=== PATIENT | female | born 1955 | race Caucasian/White ===

== ENCOUNTER 2018-02-06 04:16 | Inpatient (IN) ==
[2018-02-06] MEDS ORDERED: Sod Chloride 0.9% Inj 1,000 ML IV.SIG ONE (04:28)
[2018-02-06] MEDS ORDERED: Haloperidol Inj 5 MG/ML Ampul IV.PUSH ONE (04:36)
[2018-02-06] MEDS ORDERED: Sod Chloride 0.9% Inj 1,000 ML IV.SIG SCH (04:45)
[2018-02-06 04:47] LABS: Baso # (Auto) 0.1 th/mm3 (0.0-0.2); Baso % (Auto) 0.8 % (0.0-2.0); Eos # (Auto) 0.1 th/mm3 (0.0-0.4); Eos % (Auto) 0.3 % (0.0-4.0); Hematocrit 39.3 % (35.0-46.0); Hemoglobin 13.1 gm/dL (11.6-15.3); Lymph # (Auto) 2.3 th/mm3 (1.0-4.8); Lymph % (Auto) 13.3 % (9.0-44.0); Mean Corpuscular HGB Conc 33.2 % (32.0-36.0); Mean Corpuscular Hemoglobin 28.1 pg (27.0-34.0); Mean Corpuscular Volume 84.8 fL (80.0-100.0); Mean Platelet Volume 8.1 fL (7.0-11.0); Mono # (Auto) 0.9 th/mm3 (0.0-0.9); Mono % (Auto) 5.1 % (0.0-8.0); Neut # (Auto) 13.7 th/mm3 (1.8-7.7); Neut % (Auto) 80.5 % (16.0-70.0); Platelet Count 398 th/mm3 (150-450); Red Blood Count 4.64 mil/mm3 (4.00-5.30); Red Cell Distribution Width 12.5 % (11.6-17.2); White Blood Count 17.1 th/mm3 (4.0-11.0)
--- NOTE | 2018-02-06 04:54 | XR ---
EXAM DATE: 02/06/2018 4:50 AM EDT AGE/SEX: 62 years / Female INDICATIONS: Chest pain. CLINICAL DATA: This is the patient's initial encounter. Patient reports that signs and symptoms have been present for 1 day and indicates a pain score of 5/10. MEDICAL/SURGICAL HISTORY: None. None. COMPARISON: No prior exams available for comparison. FINDINGS: A single AP view of the chest demonstrates the lungs to be symmetrically aerated without evidence of mass, infiltrate or effusion. The cardiomediastinal contours are unremarkable. Osseous structures a re intact. CONCLUSION: No evidence of acute cardiopulmonary disease. Electronically signed by: Mark Lipscomb MD 02/06/2018 4:52 AM EDT
[2018-02-06 04:55] LABS: Chloride 105 meq/L (98-107); Potassium 3.7 meq/L (3.5-5.1); Sodium 139 meq/L (136-145)
[2018-02-06 04:58] LABS: Calcium 9.2 mg/dL (8.5-10.1)
[2018-02-06 04:59] LABS: Albumin 3.8 g/dL (3.4-5.0); Anion Gap 10 meq/L (5-15); Blood Urea Nitrogen 14 mg/dL (7-18); Glucose,Random 226 mg/dL (74-106); Lipase 212 U/L (73-393)
[2018-02-06 05:01] LABS: Activated Partial Thrombo Time 23.3 sec (24.3-30.1)
[2018-02-06 05:02] LABS: Alanine Aminotransferase 18 U/L (10-53); Aspartate Aminotransferase 22 U/L (15-37); Glomerular Filtration Rate 61 mL/min (>89)
[2018-02-06 05:03] LABS: Total Protein 7.4 g/dL (6.4-8.2)
[2018-02-06 05:05] LABS: Alkaline Phosphatase 99 U/L (45-117)
--- NOTE | 2018-02-06 05:17 | ED ---
HPI General Chief complaint: GI Bleed Stated complaint: N/V/D Time Seen by Provider: 02/06/18 04:28 Source: patient Mode of arrival: EMS Limitations: other (Physical distress) History of Present Illness HPI Narrative: 62-year-old woman brought in by EMS with numerous complaints. Chiefly nausea, vomiting, bloody diarrhea, left-sided abdominal pain and chest pain the left side. All of these complaints started sometime around midnight. They have been continuous since their onset. They are very severe and causing her great distress. She cannot count the number time she has vomited. There is no blood in the vomitus but rather food material. Her diarrhea is mixed with blood. Her pain is constant and she is unable to describe it except as sharp. She cannot recall another episode of similar symptoms and denies ever being diagnosed with gastroparesis. She is a diabetic with known peripheral artery disease. History is limited by patient's severe physical distress. Related Data Home Medications Medication Instructions Recorded Confirmed aspirin 325 mg PO DAILY 02/06/18 02/06/18 atenolol 25 mg PO DAILY 02/06/18 02/06/18 clopidogrel [Plavix] 75 mg PO DAILY 02/06/18 02/06/18 insulin NPH and regular human 1 SUB-Q ACHS 02/06/18 lisinopril 20 mg PO DAILY 02/06/18 02/06/18 tramadol 50 mg PO Q6H 02/06/18 02/06/18 Allergies Allergy/AdvReac Type Severity Reaction Status Date / Time acetaminophen AdvReac Mild AVOIDS D/T Verified 02/06/18 04:25 FATTY LIVER PER PT Review of Systems ROS Unobtainable ROS Unobtainable: unobtainable due to mental condition (Very upset and anxious due to physical discomfort) [facility] Medical History Medical History Cellulitis (Acute) Complete amputation of right foot (Acute) Diabetes (Acute) Gangrene of right foot (Acute) Hyperlipidemia (Acute) Hypertension (Acute) Osteomyelitis (Acute) Peripheral arterial disease (Acute) Social History Social History Substance History: No History of Abuse Second Hand Smoke Exposure: No Smoking Status: Never smoker How Often Do You Have a Drink Containing Alcohol: Never Recent Travel in [facility] within the Last 8 Weeks: No Recent Out of Country Travel within the Last 8 Weeks: No Immunization History Tetanus Immunization: Unsure Hx Influenza Vaccine This Season: No Exam Narrative Exam Narrative: GENERAL: 62-year-old woman writhing on stretcher. No companions at bedside accompanying patient. SKIN: Focused skin assessment warm/dry. Flushed. HEAD: Atraumatic. Normocephalic. EYES: Pupils equal and round. No scleral icterus. No injection or drainage. ENT: No nasal bleeding or discharge. Mucous membranes pink and moist. NECK: Trachea midline. No JVD. CARDIOVASCULAR: Regular rate and rhythm. No murmur appreciated. RESPIRATORY: No accessory muscle use. Clear to auscultation. Breath sounds equal bilaterally. GASTROINTESTINAL: Abdomen soft, generalized mild tenderness that is worse in the left side, nondistended. MUSCULOSKELETAL: No obvious deformities. No clubbing. No cyanosis. No edema. Right below the knee ankle at the mid aguirre level. NEUROLOGICAL: Awake and alert. No obvious cranial nerve deficits. Motor grossly within normal limits. Normal speech. PSYCHIATRIC: Very anxious and hyperkinetic; cannot sit still and has difficulty following direction. Course Reevaluation(s) Reevaluation #1: Patient in CT scan area. Her symptoms are improved somewhat after being medicated. Time: 05:23 Reevaluation #2: Morphine ordered for patient's continued pain. Awaiting CTA results at this time. Time: 05:48 Consultations Consultation #1: Dr. Garcia will admit Time: 07:17 Initial Documented Vital Signs Temperature 98.2 F 02/06/18 04:26 Pulse Rate 85 02/06/18 04:26 Respiratory Rate 18 02/06/18 04:26 Blood Pressure 192/82 H 02/06/18 04:26 Pulse Oximetry 100 02/06/18 04:26 Last Documented Vital Signs Temperature 97.6 F 02/07/18 12:00 Pulse Rate 97 H 02/07/18 12:00 Respiratory Rate 20 02/07/18 12:00 Blood Pressure 90/53 L 02/07/18 13:43 Pulse Oximetry 98 02/07/18 12:00 Sign Out Sign Out Data: Patient Sign Out occurred on 02/06/18 at 06:59. Patient's care was discussed, and care was transferred from Regan Marquez MD to Sonja Christensen. Sign Out Comment: Pending CTA chest abdomen pelvis read. Last updated by Regan Marquez MD at 02/06/18 06:57 Post-Handoff Eval: CTA is back and shows colitis but no aneurysm. I have ordered Zosyn. The patient is being admitted. Medical Decision Making MDM Narrative Medical decision making narrative: 62-year-old woman with dramatic presentation of chest/abdominal pain, vomiting and bloody diarrhea. Given her history of vasculopathy and chest pain concerned for AAA rupture or dissection. Also consider mesenteric ischemia, so will add lactic acid. Consider gastric perforation or Boerhaave syndrome. CTA of the chest abdomen and pelvis should be helpful in differentiating these. ACS is a possibility especially in this patient with strong risk factors. However ECG does not appear consistent with STEMI. Consider variceal bleed in this patient with a history of fatty liver but her symptoms of pain are not fully consistent with this diagnosis. Will treat patient's distress with Haldol IV and Zofran IV in addition to IV fluid bolus. Medical Screen Exam Complete: Yes Emergency Medical Condition: Yes Differential Diagnosis Differential Diagnosis: AAA rupture, aortic dissection, mesenteric ischemia, perforated hollow viscus, Boerhaave syndrome, ACS, variceal bleed, upper GI bleed, lower GI bleed Medical Records Medical records reviewed: Yes I reviewed the patient's medical records. Lab Data Result diagrams: 02/07/18 10:00 02/06/18 04:40 Lab Results 02/06/18 02/06/18 02/06/18 Range/Units 04:40 04:40 04:40 CBC w Diff Auto diff final WBC 17.1 H (4.0-11.0) th/mm3 RBC 4.64 (4.00-5.30) mil/mm3 Hgb 13.1 (11.6-15.3) gm/dL Hct 39.3 (35.0-46.0) % MCV 84.8 (80.0-100.0) fL MCH 28.1 (27.0-34.0) pg MCHC 33.2 (32.0-36.0) % RDW 12.5 (11.6-17.2) % Plt Count 398 (150-450) th/mm3 MPV 8.1 (7.0-11.0) fL Neut % (Auto) 80.5 H (16.0-70.0) % Lymph % (Auto) 13.3 (9.0-44.0) % Blair % (Auto) 5.1 (0.0-8.0) % Eos % (Auto) 0.3 (0.0-4.0) % Baso % (Auto) 0.8 (0.0-2.0) % Neut # (Auto) 13.7 H (1.8-7.7) th/mm3 Lymph # (Auto) 2.3 (1.0-4.8) th/mm3 Blair # (Auto) 0.9 (0.0-0.9) th/mm3 Eos # (Auto) 0.1 (0.0-0.4) th/mm3 Baso # (Auto) 0.1 (0.0-0.2) th/mm3 WBC Differential . Differential Comment . PT 10.0 (9.8-11.6) sec INR 1.0 Ratio APTT 23.3 L (24.3-30.1) sec Sodium 139 (136-145) meq/L Potassium 3.7 (3.5-5.1) meq/L Chloride 105 (98-107) meq/L Carbon Dioxide 24.0 (21.0-32.0) meq/L Anion Gap 10 (5-15) meq/L BUN 14 (7-18) mg/dL Creatinine 0.93 (0.50-1.00) mg/dL Estimated GFR 61 L (>89) mL/min POC Glucose (68-110) mg/dl Random Glucose 226 H (74-106) mg/dL Lactic Acid (0.4-2.0) mmol/L Calcium 9.2 (8.5-10.1) mg/dL Total Bilirubin 0.4 (0.2-1.0) mg/dL AST 22 (15-37) U/L ALT 18 (10-53) U/L Alkaline Phosphatase 99 (45-117) U/L Troponin I Less than 0.02 L (0.02-0.05) ng/mL Total Protein 7.4 (6.4-8.2) g/dL Albumin 3.8 (3.4-5.0) g/dL Lipase 212 (73-393) U/L St C. diff Tox Epid 027 (Negative) C. difficile (PCR) (Negative) Blood Type Antibody Screen 02/06/18 02/06/18 02/06/18 Range/Units 04:40 04:40 05:40 CBC w Diff WBC (4.0-11.0) th/mm3 RBC (4.00-5.30) mil/mm3 Hgb (11.6-15.3) gm/dL Hct (35.0-46.0) % MCV (80.0-100.0) fL MCH (27.0-34.0) pg MCHC (32.0-36.0) % RDW (11.6-17.2) % Plt Count (150-450) th/mm3 MPV (7.0-11.0) fL Neut % (Auto) (16.0-70.0) % Lymph % (Auto) (9.0-44.0) % Blair % (Auto) (0.0-8.0) % Eos % (Auto) (0.0-4.0) % Baso % (Auto) (0.0-2.0) % Neut # (Auto) (1.8-7.7) th/mm3 Lymph # (Auto) (1.0-4.8) th/mm3 Blair # (Auto) (0.0-0.9) th/mm3 Eos # (Auto) (0.0-0.4) th/mm3 Baso # (Auto) (0.0-0.2) th/mm3 WBC Differential Differential Comment PT (9.8-11.6) sec INR Ratio APTT (24.3-30.1) sec Sodium (136-145) meq/L Potassium (3.5-5.1) meq/L Chloride (98-107) meq/L Carbon Dioxide (21.0-32.0) meq/L Anion Gap (5-15) meq/L BUN (7-18) mg/dL Creatinine (0.50-1.00) mg/dL Estimated GFR (>89) mL/min POC Glucose 201 H (68-110) mg/dl Random Glucose (74-106) mg/dL Lactic Acid 1.8 (0.4-2.0) mmol/L Calcium (8.5-10.1) mg/dL Total Bilirubin (0.2-1.0) mg/dL AST (15-37) U/L ALT (10-53) U/L Alkaline Phosphatase (45-117) U/L Troponin I (0.02-0.05) ng/mL Total Protein (6.4-8.2) g/dL Albumin (3.4-5.0) g/dL Lipase (73-393) U/L St C. diff Tox Epid 027 (Negative) C. difficile (PCR) (Negative) Blood Type O Positive Antibody Screen Negative 02/06/18 02/07/18 02/07/18 Range/Units 20:55 06:52 09:53 CBC w Diff WBC (4.0-11.0) th/mm3 RBC (4.00-5.30) mil/mm3 Hgb (11.6-15.3) gm/dL Hct (35.0-46.0) % MCV (80.0-100.0) fL MCH (27.0-34.0) pg MCHC (32.0-36.0) % RDW (11.6-17.2) % Plt Count (150-450) th/mm3 MPV (7.0-11.0) fL Neut % (Auto) (16.0-70.0) % Lymph % (Auto) (9.0-44.0) % Blair % (Auto) (0.0-8.0) % Eos % (Auto) (0.0-4.0) % Baso % (Auto) (0.0-2.0) % Neut # (Auto) (1.8-7.7) th/mm3 Lymph # (Auto) (1.0-4.8) th/mm3 Blair # (Auto) (0.0-0.9) th/mm3 Eos # (Auto) (0.0-0.4) th/mm3 Baso # (Auto) (0.0-0.2) th/mm3 WBC Differential Differential Comment PT (9.8-11.6) sec INR Ratio APTT (24.3-30.1) sec Sodium (136-145) meq/L Potassium (3.5-5.1) meq/L Chloride (98-107) meq/L Carbon Dioxide (21.0-32.0) meq/L Anion Gap (5-15) meq/L BUN (7-18) mg/dL Creatinine (0.50-1.00) mg/dL Estimated GFR (>89) mL/min POC Glucose 130 H 208 H (68-110) mg/dl Random Glucose (74-106) mg/dL Lactic Acid (0.4-2.0) mmol/L Calcium (8.5-10.1) mg/dL Total Bilirubin (0.2-1.0) mg/dL AST (15-37) U/L ALT (10-53) U/L Alkaline Phosphatase (45-117) U/L Troponin I (0.02-0.05) ng/mL Total Protein (6.4-8.2) g/dL Albumin (3.4-5.0) g/dL Lipase (73-393) U/L St C. diff Tox Epid 027 Negative (Negative) C. difficile (PCR) Negative (Negative) Blood Type Antibody Screen 02/07/18 02/07/18 02/07/18 Range/Units 10:00 11:47 16:50 CBC w Diff Auto diff final WBC 8.9 (4.0-11.0) th/mm3 RBC 4.16 (4.00-5.30) mil/mm3 Hgb 11.9 (11.6-15.3) gm/dL Hct 34.8 L (35.0-46.0) % MCV 83.7 (80.0-100.0) fL MCH 28.7 (27.0-34.0) pg MCHC 34.3 (32.0-36.0) % RDW 13.3 (11.6-17.2) % Plt Count 375 (150-450) th/mm3 MPV 8.4 (7.0-11.0) fL Neut % (Auto) 65.9 (16.0-70.0) % Lymph % (Auto) 28.5 (9.0-44.0) % Blair % (Auto) 4.7 (0.0-8.0) % Eos % (Auto) 0.6 (0.0-4.0) % Baso % (Auto) 0.3 (0.0-2.0) % Neut # (Auto) 5.9 (1.8-7.7) th/mm3 Lymph # (Auto) 2.5 (1.0-4.8) th/mm3 Blair # (Auto) 0.4 (0.0-0.9) th/mm3 Eos # (Auto) 0.1 (0.0-0.4) th/mm3 Baso # (Auto) 0.0 (0.0-0.2) th/mm3 WBC Differential . Differential Comment . PT (9.8-11.6) sec INR Ratio APTT (24.3-30.1) sec Sodium (136-145) meq/L Potassium (3.5-5.1) meq/L Chloride (98-107) meq/L Carbon Dioxide (21.0-32.0) meq/L Anion Gap (5-15) meq/L BUN (7-18) mg/dL Creatinine (0.50-1.00) mg/dL Estimated GFR (>89) mL/min POC Glucose 226 H 141 H (68-110) mg/dl Random Glucose (74-106) mg/dL Lactic Acid (0.4-2.0) mmol/L Calcium (8.5-10.1) mg/dL Total Bilirubin (0.2-1.0) mg/dL AST (15-37) U/L ALT (10-53) U/L Alkaline Phosphatase (45-117) U/L Troponin I (0.02-0.05) ng/mL Total Protein (6.4-8.2) g/dL Albumin (3.4-5.0) g/dL Lipase (73-393) U/L St C. diff Tox Epid 027 (Negative) C. difficile (PCR) (Negative) Blood Type Antibody Screen Imaging Data Radiologist's impression: Chest X-Ray 02/06/18 04:36 CONCLUSION: No evidence of acute cardiopulmonary disease. Thoracic Aorta CT 02/06/18 04:37 CONCLUSION: 1. Diffuse atherosclerotic disease. No dissection or aneurysm of the aorta. 2. No acute occlusive disease demonstrated within the chest, abdomen or pelvis. There is partly seen evidence of high-grade stenosis/occlusion of the visualized right superficial femoral artery. 3. Nonspecific colitis of the left-sided colon. This is presumably infectious or inflammatory. No abscess, perforation or obstruction. Discharge Plan Discharge Disposition Patient Disposition: 30 Still Patient Discharge Details Diagnosis: Acute GI bleeding, Colitis Physicians Team ED Provider: Sonja Christensen Primary Care Provider: Mark Anaya Attending Provider: Sara Garcia Other Providers: Lashonda Hernandez ; [facility],Insurance Status ED Status: Left Department Discharge Information Discharge Date/Time: 02/06/18 08:32
[2018-02-06] MEDS ORDERED: Morphine Sulfate Inj 2 MG/ML Vial IV.PUSH ONE (05:46)
--- NOTE | 2018-02-06 06:57 | CT ---
EXAM DATE: 02/06/2018 6:29 AM EDT AGE/SEX: 62 years / Female INDICATIONS: Nausea, vomiting, and diarrhea. CLINICAL DATA: This is the patient's initial encounter. Patient reports that signs and symptoms have been present for 1 day and indicates a pain score of 2/10. MEDICAL/SURGICAL HISTORY: . Cellulitis. Diabetes. Hyperlipidemia. Hypertension. . Right foot amput ation. RADIATION DOSE: 17.83 CTDI (mGy) COMPARISON: [facility], CTA AORTA W/ RUNOFF, 11/19/2014. . TECHNIQUE: Volumetric scanning was performed using a multi-row detector CT scanner during bolus infu kenan of 80 ml Omnipaque 350 (iohexol) nonionic water-soluble contrast as a single exam dose. The da ta was post processed with a variety of visualization algorithms including full volume maximum intens ity projection, multi-planar sliding thin slab reformation, curved planar reformation, and surface re ndering techniques. Using automated exposure control and adjustment of the mA and/or kV according to patient size, radiation dose was kept as low as reasonably achievable to obtain optimal diagnostic q uality images. DICOM format image data is available electronically for review and comparison. FINDINGS: Diffuse atherosclerotic plaque seen of the thoracic and abdominal portions of the aorta. N o aneurysm or dissection. Atherosclerosis involves the branch vessels within the abdomen. There is lo ng segment severe stenosis of the visualized right superficial femoral artery which was present on th e prior study, probably slightly worse now. Patient has a right below knee amputation. There is thickening of the descending and sigmoid colon wall. No abscess, perforation or obstruction. Liver is fatty infiltrated. No focal hepatic lesion. Spleen, pancreas and adrenal glands are within n ormal limits. 6 mm nonobstructing stone mid zone of the left kidney. There is a 6.9 cm benign cyst lo wer pole of the right kidney. No free fluid or free air. No lymphadenopathy. CONCLUSION: 1. Diffuse atherosclerotic disease. No dissection or aneurysm of the aorta. 2. No acute occlusive disease demonstrated within the chest, abdomen or pelvis. There is partly seen evidence of high-grade stenosis/occlusion of the visualized right superficial femoral artery. 3. Nonspecific colitis of the left-sided colon. This is presumably infectious or inflammatory. No ab scess, perforation or obstruction. Electronically signed by: Mark Lipscomb MD 02/06/2018 6:55 AM EDT
[2018-02-06] MEDS ORDERED: Pantoprazole Inj 40 MG Vial IV.PUSH ONE (07:00)
[2018-02-06] MEDS ORDERED: Pantoprazole Inj 80 MG in Sodium Chlor 0.9% Inj 100 ML IV.CONT SCH (07:00)
[2018-02-06] MEDS ORDERED: Piperacil/Tazo 3.375 GM Premix 50 ML IV.SIG ONE (07:04)
[2018-02-06] MEDS ORDERED: Bisacodyl 10 MG Supp RECTAL PRN (07:14)
[2018-02-06] MEDS ORDERED: Acetaminophen 325 MG Tablet PO PRN (07:14)
--- NOTE | 2018-02-06 11:56 | ECG ---
Date Performed: 02/06/2018 Time Performed: 04:33:47 PTAGE: 62 years EKG: Sinus rhythm FIRST DEGREE AV BLOCK MINIMAL ST DEPRESSION ABNORMAL RHYTHM ECG Since the PREVIOUS TRACING , no significant change noted DOCTOR: Ciro Mauro Interpretating Date/Time 02/06/2018 11:55:04
--- NOTE | 2018-02-06 12:09 | P.HP ---
History of Present Illness Service: Hospitalist Primary Care Physician: Mark Anaya DO Chief Complaint: Abdominal pain, rectal bleed History of Present Illness: Ms. Zhou is a pleasant 62-year-old female with a history of diabetes mellitus, hypertension who was admitted to the hospital on 02/06/2018 due to abdominal pain, rectal bleed, nausea and vomiting. She has significant diarrhea as well which was bloody. Her symptoms started at night on 02/05/2018. She denies any fever but reports chills. She has never had a colonoscopy before. Upon arrival WBC 17.1K, hemoglobin 13.1, MCV 84.8, platelet 398K. Lactic acid 1.8. Thoracic aorta CT scan shows diffuse atherosclerotic disease. Also shows nonspecific colitis of the left-sided colon. 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 Cataract surgery. Family history significant for mother from Alzheimer's disease. Patient's father from brain aneurysm at young age. Inpatient Certification: I certify that the inpatient services were ordered in accordance with Medicare regulations governing the order. This includes certification that hospital inpatient services are reasonable and necessary and in the case of services not specified as inpatient-only under 42 CFR 419.22(n), that they are appropriately provided as inpatient services in accordance to with the 2-midnight benchmark under 43 CFR 412.3(e) Estimated Total Length of Stay (Days): 3 Plans for Post Hospital Care: Home Review of Systems All other systems reviewed negative except as stated in HPI [facility] - History History Provided By: Patient - Medical History Medical History: Medical History (Last Reviewed 02/06/18 @ 05:18 by Regan Marquez MD) Cellulitis Complete amputation of right foot Diabetes Gangrene of right foot Hyperlipidemia Hypertension Osteomyelitis Peripheral arterial disease - Tobacco History Second Hand Smoke Exposure: No Tobacco Use In Past 30 Days: No (QUIT 2013) Smoking Status: Never smoker - Alcohol History How Often Do You Have a Drink Containing Alcohol: Never - Substance Use History Substance History: No History of Abuse - Travel History Recent Travel in the [place] Within the Last 8 Weeks: No Recent Travel Out of the Country Within the Last 8 Weeks: No - Immunization History Tetanus Immunization: Unsure Hx Influenza Vaccine This Season: No Medications and Allergies Active Medications: Active Medications Acetaminophen (Tylenol) 650 mg PO Q4H PRN PRN Reason: Headache, fever, pain 1-4 Al Hydroxide/Mg Hydroxide (Milk Of Magnesia Liq) 30 ml PO Q12H PRN PRN Reason: Mild Constipation Bisacodyl (Dulcolax Supp) 10 mg RECTAL DAILY PRN PRN Reason: SEVERE CONSITIPATION Sodium Chloride (Ns Inj) 1,000 mls @ 0 mls/hr IV.SIG BOLUS ABRAN Last Admin: 02/06/18 07:26 Dose: 100 mls/hr Pantoprazole Sodium 80 mg/ (Sodium Chloride) 100 mls @ 10 mls/hr IV.CONT CONT ABRAN Sodium Chloride (Ns Inj) 1,000 mls @ 100 mls/hr IV.CONT .Q10H ABRAN Piperacillin/Tazobactam/Dextrose (Zosyn 4.5 Gm Premix) 4.5 gm in 100 mls @ 200 mls/hr IV.SIG Q8H ABRAN Lactulose (Lactulose Liq) 30 ml PO DAILY PRN PRN Reason: SEVERE CONSITIPATION Ondansetron HCl (Zofran Inj) 4 mg IV.PUSH Q6H PRN PRN Reason: NAUSEA OR VOMITING Sennosides (Senokot) 17.2 mg PO Q12H PRN PRN Reason: Moderate Constipation Sodium Chloride (Ns Flush) 2 ml IV.FLUSH PRN PRN PRN Reason: FLUSH AFTER USING IV ACCESS Allergies Allergy/AdvReac Type Severity Reaction Status Date / Time acetaminophen AdvReac Mild AVOIDS D/T Verified 02/06/18 04:25 FATTY LIVER PER PT Home Medications Medication Instructions Recorded Confirmed Type aspirin 325 mg PO DAILY 02/06/18 02/06/18 History atenolol 25 mg PO DAILY 02/06/18 02/06/18 History clopidogrel [Plavix] 75 mg PO DAILY 02/06/18 02/06/18 History insulin NPH and regular human 1 SUB-Q ACHS 02/06/18 History lisinopril 20 mg PO DAILY 02/06/18 02/06/18 History tramadol 50 mg PO Q6H 02/06/18 02/06/18 History Exam Vital signs: Vital Signs 02/06/18 04:26 02/06/18 06:06 02/06/18 06:08 Temperature 98.2 F Pulse Rate 85 86 Respiratory Rate 18 18 Blood Pressure 192/82 H 156/76 H Pulse Oximetry 100 99 98 08/27/18 06:10 02/06/18 07:13 02/06/18 08:00 Temperature 96.3 F L Pulse Rate 80 80 Respiratory Rate 14 16 Blood Pressure 91/53 L 102/54 L Pulse Oximetry 99 99 96 02/06/18 08:15 Temperature Pulse Rate 68 Respiratory Rate 16 Blood Pressure 90/51 L Pulse Oximetry 98 Intake & Output 02/05/18 02/06/18 02/06/18 18:59 06:59 18:59 Intake Total 1000 / 1000 Output Total 400 / 400 Balance 600 / 600 Weight 66 kg Intake: IV 1000 / 1000 NS Inj 1,000 ML @ Wide Open IV. 1000 / 1000 SIG BOLUS ONE Rx#:[id number] Output: Urine 400 / 400 Narrative: GENERAL: This is a well-nourished, well-developed patient, in no apparent distress. SKIN: No rashes, ecchymoses or lesions. Warm and dry. HEAD: Atraumatic. Normocephalic. No temporal or scalp tenderness. EYES: Pupils equal round and reactive. No injection or drainage. ENT: Nose without bleeding, purulent drainage or septal hematoma. Airway patent. NECK: Trachea midline. No lymphadenopathy. Supple, nontender, no meningeal signs. CARDIOVASCULAR: Regular rate and rhythm without murmurs, gallops, or rubs. No JVD. RESPIRATORY: Clear to auscultation. Breath sounds equal bilaterally. No wheezes , rales, or rhonchi. GASTROINTESTINAL: Abdomen soft, non-tender, nondistended. No guarding. MUSCULOSKELETAL: Extremities without clubbing, cyanosis, or edema. Right BKA noted. NEUROLOGICAL: Awake and alert. Cranial nerves II through XII intact. No focal neurological deficits. Normal speech. Results - Labs CBC & Chem 7: 02/06/18 04:40 02/06/18 04:40 Labs: Laboratory Results - last 24 hr 02/06/18 02/06/18 02/06/18 04:40 04:40 04:40 CBC w Diff Auto diff final WBC 17.1 H RBC 4.64 Hgb 13.1 Hct 39.3 MCV 84.8 MCH 28.1 MCHC 33.2 RDW 12.5 Plt Count 398 MPV 8.1 Neut % (Auto) 80.5 H Lymph % (Auto) 13.3 [place] % (Auto) 5.1 Eos % (Auto) 0.3 Baso % (Auto) 0.8 Neut # (Auto) 13.7 H Lymph # (Auto) 2.3 [place] # (Auto) 0.9 Eos # (Auto) 0.1 Baso # (Auto) 0.1 WBC Differential . Differential Comment . PT 10.0 INR 1.0 APTT 23.3 L Sodium 139 Potassium 3.7 Chloride 105 Carbon Dioxide 24.0 Anion Gap 10 BUN 14 Creatinine 0.93 Estimated GFR 61 L POC Glucose Random Glucose 226 H Lactic Acid Calcium 9.2 Total Bilirubin 0.4 AST 22 ALT 18 Alkaline Phosphatase 99 Troponin I Less than 0.02 L Total Protein 7.4 Albumin 3.8 Lipase 212 Blood Type Antibody Screen 02/06/18 02/06/18 02/06/18 04:40 04:40 05:40 CBC w Diff WBC RBC Hgb Hct MCV MCH MCHC RDW Plt Count MPV Neut % (Auto) Lymph % (Auto) [place] % (Auto) Eos % (Auto) Baso % (Auto) Neut # (Auto) Lymph # (Auto) [place] # (Auto) Eos # (Auto) Baso # (Auto) WBC Differential Differential Comment PT INR APTT Sodium Potassium Chloride Carbon Dioxide Anion Gap BUN Creatinine Estimated GFR POC Glucose 201 H Random Glucose Lactic Acid 1.8 Calcium Total Bilirubin AST ALT Alkaline Phosphatase Troponin I Total Protein Albumin Lipase Blood Type O Positive Antibody Screen Negative - Imaging Impressions Chest X-Ray 02/06/18 04:36 CONCLUSION: No evidence of acute cardiopulmonary disease. Thoracic Aorta CT 02/06/18 04:37 CONCLUSION: 1. Diffuse atherosclerotic disease. No dissection or aneurysm of the aorta. 2. No acute occlusive disease demonstrated within the chest, abdomen or pelvis. There is partly seen evidence of high-grade stenosis/occlusion of the visualized right superficial femoral artery. 3. Nonspecific colitis of the left-sided colon. This is presumably infectious or inflammatory. No abscess, perforation or obstruction. Caprini VTE Risk Assessment Caprini VTE Risk Assessment: No/Low Risk (score <= 1) Caprini Risk Assessment Model: Point Value = 1 Point Value = 2 Point Value = 3 Point Value = 5 Age 41-60 Minor surgery BMI > 25 kg/m2 Swollen legs Varicose veins or History of unexplained or recurrent spontaneous Oral contraceptives or hormone replacement Sepsis (< 1 month) Serious lung disease, including pneumonia (< 1 month) Abnormal pulmonary function Acute myocardial infarction Congestive heart failure (< 1 month) History of inflammatory bowel disease Medical patient at bed rest Age 61-74 Arthroscopic surgery Major open surgery (> 45 min) Laparoscopic surgery (> 45 min) Malignancy Confined to bed (> 72 hours) Immobilizing plaster cast Central venous access Age >= 75 History of VTE Family history of VTE Factor V Leiden Prothrombin 22135C Lupus anticoagulant Anticardiolipin antibodies Elevated serum homocysteine Heparin-induced thrombocytopenia Other congenital or acquired thrombophilia Stroke (< 1 month) Elective arthroplasty Hip, pelvis, or leg fracture Acute spinal cord injury (< 1 month) Prophylaxis Regimen: Total Risk Factor Score Risk Level Prophylaxis Regimen 0-1 Low Early ambulation 2 Moderate Order ONE of the following: *Sequential Compression Device (SCD) *Heparin 5000 units SQ BID 3-4 Higher Order ONE of the following medications: *Heparin 5000 units SQ TID *Enoxaparin/Lovenox 40 mg SQ daily (WT < 150 kg, CrCl > 30 mL/min) *Enoxaparin/Lovenox 30 mg SQ daily (WT < 150 kg, CrCl > 10-29 mL/min) *Enoxaparin/Lovenox 30 mg SQ BID (WT < 150 kg, CrCl > 30 mL/min) AND/OR *Sequential Compression Device (SCD) 5 or more Highest Order ONE of the following medications: *Heparin 5000 units SQ TID (Preferred with Epidurals) *Enoxaparin/Lovenox 40 mg SQ daily (WT < 150 kg, CrCl > 30 mL/min) *Enoxaparin/Lovenox 30 mg SQ daily (WT < 150 kg, CrCl > 10-29 mL/min) *Enoxaparin/Lovenox 30 mg SQ BID (WT < 150 kg, CrCl > 30 mL/min) AND *Sequential Compression Device (SCD) Assessment and Plan - Plan Ms. Zhou is a pleasant 62 year old female with a history of hypertension, diabetes mellitus who presented to the emergency department due to rectal bleed , abdominal pain, nausea and vomiting that started on 02/05/2018. Patient never underwent colonoscopy. Acute rectal bleed Acute gastroenteritis Probable diverticulitis -WBC count significantly elevated to 17.1K. We will keep patient on Zosyn 4.5 g every 8 hours. -We will consult GI for further evaluation. Patient may need colonoscopy. -Currently patient complains of no significant abdominal pain. -We can start patient on a diabetic diet and see how she tolerates. -D/C protonix drip. Will continue PO PPI. Diabetes mellitus - Will start patient on Levemir 10 units QHS and sliding scale insulin. Hypertension - Patient is currently somewhat hypotensive. Continue NS @ 100cc/hour. - Hold off using Atenolol 25mg Qday or Lisinopril 20mg Qday. Full code. SCDs for now.
[2018-02-06] MEDS ORDERED: PEG 3350/E-Lyte Soln 4000 ML Bottle PO ONE (13:07)
[2018-02-06] MEDS: Piperacil/Tazo 4.5 GM Premix 4.5 GM/100 ML BAG IV.SIG SCH ×2 (15:00→22:17)
[2018-02-06] MEDS: Sod Chloride 0.9% Inj 1,000 ML IV.CONT SCH ×2 (15:02→18:07)
--- NOTE | 2018-02-06 23:33 | MB ---
cc: Lashonda Hernandez MD DATE: 02/06/2018 HISTORY OF PRESENT ILLNESS: Ms. Zhou is a 62-year-old lady with multiple medical problems. She was admitted to the hospital with complaints of abdominal pain, rectal bleed. The patient has some abdominal pain, diarrhea starting 1 day prior to her admission. She also had nausea and vomiting. She denies any recent travel, antibiotic use, or sick contacts. She denies consumption of suspicious food. Never had endoscopy, no colonoscopy. In the emergency room, she was found to have elevated white count. CT abdomen and pelvis showed left-sided colitis, nonspecific. 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 PAST MEDICAL HISTORY: Diabetes, hypertension, and peripheral vascular disease. FAMILY HISTORY: Mother has Alzheimer. Father had brain aneurysm at a young age. ALLERGIES: ACETAMINOPHEN. SOCIAL HISTORY: She denies any smoking, drinking, or drug use. MEDICATIONS: In the hospital: 1. Tylenol. 2. Milk of magnesia. 3. Dulcolax. 4. Protonix. 5. Zosyn. 6. Lactulose. 7. Zofran. 8. Senokot. HOME MEDICATIONS: 1. Aspirin. 2. Atenolol. 3. Plavix. 4. Insulin. 5. Lisinopril. 6. Tramadol. REVIEW OF SYSTEMS: GENERAL: She denies any fever, chills, weight loss or weight gain. ENT: No alteration of baseline hearing or visual activity. PULMONARY: Denies any chest pain, shortness of breath. GASTROINTESTINAL: As above. GENITOURINARY: Denies dysuria or hematuria. HEMATOLOGICAL: No history of anemia or bleeding disorder. PHYSICAL EXAMINATION: GENERAL: She is sitting comfortably in bed, in no acute distress. VITAL SIGNS: Temperature is 97.9, pulse 71, respirations 16, blood pressure 100/55, saturation 98. HEENT: PERRLA. NECK: No JVD. No lymphadenopathy. CHEST: Clear to auscultation and palpation. CARDIOVASCULAR: S1, S2. No murmur. ABDOMEN: Soft, nontender. Bowel sounds are present. CENTRAL NERVOUS SYSTEM: She is awake, alert, oriented x3. No focal signs identified. EXTREMITIES: Right foot amputation. LABORATORY DATA: Her labs were suggestive. White count 17.9, white count, hemoglobin is 13, platelets 398. PT, INR normal. Her chemistry is suggestive of glucose 226. Liver enzymes normal. CT abdomen and pelvis was done suggestive of left-sided colitis. IMPRESSION: Ms. Zhou is a very pleasant 62-year-old lady admitted to the hospital with gastrointestinal bleed, most likely secondary to left-sided colitis. Left-sided colitis, suspect ischemic colitis versus infectious colitis, less likely inflammatory bowel disease. Diarrhea, resolved. Possible infectious versus ischemic colitis. RECOMMENDATIONS: Clear liquid diet, n.p.o. after midnight, colonoscopy in the morning. Monitor H and H closely. Call GI if active bleed. Stool studies. Further recommendation will depend on the patient's clinical status and the above results. I would like to thank Dr. Sara Garcia for referring her to our office for consultation. MD RAMAKRISHNA Michel/[email or web address]/[email or web address] , 07:55 PM , 08:08 PM
[2018-02-07] MEDS: Sod Chloride 0.9% Inj 1,000 ML IV.CONT SCH (04:12)
[2018-02-07] MEDS: Piperacil/Tazo 4.5 GM Premix 4.5 GM/100 ML BAG IV.SIG SCH ×4 (05:33→23:08)
[2018-02-07] MEDS ORDERED: *Ondansetron Inj 4 MG/2 ML Vial PERIprocedural Use ONLY ONE (08:45)
[2018-02-07] MEDS ORDERED: Dextrose 50% in Water 50 ML Vial IV.PUSH PRN (09:55)
[2018-02-07] MEDS ORDERED: Pantoprazole Inj 40 MG Vial IV.PUSH ONE (09:55)
--- NOTE | 2018-02-07 10:08 | P.PN ---
Subjective Interval history: Follow-up for GI bleed, leukocytosis. Patient returned from colonoscopy and currently does not feel well. She has some nausea. She denies any further rectal bleed. No fever or chills. Physical Exam Vital signs: Vital Signs 02/06/18 12:00 02/06/18 16:00 02/06/18 20:00 Temperature 97.9 F 99.2 F 98.3 F Pulse Rate 71 69 72 Respiratory Rate 16 16 16 Blood Pressure 100/55 L 118/58 L 118/59 L Pulse Oximetry 95 98 96 02/07/18 00:00 02/07/18 06:44 02/07/18 08:39 Temperature 98.4 F 98.3 F 98.2 F Pulse Rate 68 77 82 Respiratory Rate 16 20 14 Blood Pressure 119/58 L 142/75 H 132/71 Pulse Oximetry 95 97 100 02/07/18 08:59 Temperature Pulse Rate 92 H Respiratory Rate 14 Blood Pressure 175/82 H Pulse Oximetry 100 Intake & Output 02/06/18 02/07/18 02/07/18 18:59 06:59 18:59 Intake Total 1580 / 1580 2250 / 2250 Output Total 804 / 804 Balance 1580 / 1580 1446 / 1446 Weight 66.4 kg 66.4 kg Intake: IV 1100 / 1100 1250 / 1250 NS Inj 1,000 ML @ 100 mls/hr IV 1000 / 1000 .CONT .Q10H ABRAN Rx#:[id number] Zosyn 4.5 GM Premix 4.5 gm In 100 / 100 200 / 200 100 ml @ 200 mls/hr IV.SIG Q8H ABRAN Rx#:[id number] NS Inj 1,000 ML @ Wide Open IV. 1000 / 1000 SIG BOLUS ABRAN Rx#:[id number] Oral 480 / 480 1000 / 1000 Output: Urine 800 / 800 Urine/Stool Mix 4 / 4 Other: # Voids 3 Date of Last Bowel Movement 02/06/18 # Bowel Movements 0 Narrative: GENERAL: Alert, NAD. SKIN: Warm and dry. HEAD: Normocephalic. EYES: No scleral icterus. No injection or drainage. NECK: Supple, trachea midline. No JVD or lymphadenopathy. CARDIOVASCULAR: Regular rate and rhythm without murmurs, gallops, or rubs. RESPIRATORY: Breath sounds equal bilaterally. No accessory muscle use. GASTROINTESTINAL: Abdomen soft, non-tender, nondistended. MUSCULOSKELETAL: No cyanosis, or edema. BACK: Nontender without obvious deformity. No CVA tenderness. Results - Labs CBC & Chem 7: 02/07/18 10:00 02/06/18 04:40 Laboratory Results - last 24 hr 02/06/18 02/07/18 02/07/18 20:55 06:52 09:53 POC Glucose [address] C. diff Tox Epid 027 Negative C. difficile (PCR) Negative - Imaging Chest X-Ray 02/06/18 04:36 CONCLUSION: No evidence of acute cardiopulmonary disease. Thoracic Aorta CT 02/06/18 04:37 CONCLUSION: 1. Diffuse atherosclerotic disease. No dissection or aneurysm of the aorta. 2. No acute occlusive disease demonstrated within the chest, abdomen or pelvis. There is partly seen evidence of high-grade stenosis/occlusion of the visualized right superficial femoral artery. 3. Nonspecific colitis of the left-sided colon. This is presumably infectious or inflammatory. No abscess, perforation or obstruction. Assessment and Plan - Plan Ms. Zhou is a pleasant 62 year old female with a history of hypertension, diabetes mellitus who presented to the emergency department due to rectal bleed , abdominal pain, nausea and vomiting that started on 02/05/2018. Patient never underwent colonoscopy. Acute rectal bleed Acute gastroenteritis Probable diverticulitis -WBC improved from 17.1 --> 8.9. -GI evaluated patient. Colonoscopy apparently showed diverticulosis, hemorrhoid and ischemic colitis. -Hemoglobin 11.9 today. Diabetes mellitus - Levemir 7 units QHS and sliding scale insulin. Hypertension - Patient is currently somewhat hypertensive, possibly related to pain - Re-start home med lisinopril 20 mg daily. Vasotec IV as needed. Full code. SCDs for now. Discharge plan: Likely discharge later today or more likely in the morning on .
[2018-02-07 10:34] LABS: Baso % (Auto) 0.3 % (0.0-2.0); Eos # (Auto) 0.1 th/mm3 (0.0-0.4); Eos % (Auto) 0.6 % (0.0-4.0); Hematocrit 34.8 % (35.0-46.0); Hemoglobin 11.9 gm/dL (11.6-15.3); Lymph # (Auto) 2.5 th/mm3 (1.0-4.8); Lymph % (Auto) 28.5 % (9.0-44.0); Mean Corpuscular HGB Conc 34.3 % (32.0-36.0); Mean Corpuscular Hemoglobin 28.7 pg (27.0-34.0); Mean Corpuscular Volume 83.7 fL (80.0-100.0); Mean Platelet Volume 8.4 fL (7.0-11.0); Mono # (Auto) 0.4 th/mm3 (0.0-0.9); Mono % (Auto) 4.7 % (0.0-8.0); Neut # (Auto) 5.9 th/mm3 (1.8-7.7); Neut % (Auto) 65.9 % (16.0-70.0); Platelet Count 375 th/mm3 (150-450); Red Blood Count 4.16 mil/mm3 (4.00-5.30); Red Cell Distribution Width 13.3 % (11.6-17.2); White Blood Count 8.9 th/mm3 (4.0-11.0)
[2018-02-07] MEDS: Lisinopril 20 MG Tablet PO SCH (10:38)
[2018-02-07] MEDS: Insulin NovoLOG Aspart Correctional Sugar Inj SQ SCH ×4 (10:51→20:45)
[2018-02-07] MEDS ORDERED: HYDROmorphone PF Inj 2 MG/ML Vial IV.PUSH ONE (12:35)
[2018-02-07] MEDS ORDERED: HYDROmorphone PF Inj 2 MG/ML Vial IV.PUSH PRN (15:30)
--- NOTE | 2018-02-07 19:35 | P.PNGI ---
Physical Exam Vital signs: Vital Signs 02/06/18 20:00 02/07/18 00:00 02/07/18 06:44 Temperature 98.3 F 98.4 F 98.3 F Pulse Rate 72 68 77 Respiratory Rate 16 16 20 Blood Pressure 118/59 L 119/58 L 142/75 H Pulse Oximetry 96 95 97 02/07/18 08:39 02/07/18 08:59 02/07/18 12:00 Temperature 98.2 F 97.6 F Pulse Rate 82 92 H 97 H Respiratory Rate 14 14 20 Blood Pressure 132/71 175/82 H 198/95 H Pulse Oximetry 100 100 98 02/07/18 13:43 Temperature Pulse Rate Respiratory Rate Blood Pressure 90/53 L Pulse Oximetry Intake & Output 02/07/18 02/07/18 02/08/18 06:59 18:59 06:59 Intake Total 2250 / 2250 940 / 940 Output Total 804 / 804 400 / 400 Balance 1446 / 1446 540 / 540 Weight 66.4 kg Intake: IV 1250 / 1250 100 / 100 NS Inj 1,000 ML @ 100 mls/hr IV 1000 / 1000 .CONT .Q10H ABRAN Rx#:[id number] Zosyn 4.5 GM Premix 4.5 gm In 200 / 200 100 / 100 100 ml @ 200 mls/hr IV.SIG Q8H ABRAN Rx#:[id number] Oral 1000 / 1000 240 / 240 Anesthesia Amount 600 / 600 Output: Urine 800 / 800 400 / 400 Urine/Stool Mix 4 / 4 Other: Date of Last Bowel Movement 02/06/18 Results - Labs CBC & Chem 7: 02/07/18 10:00 02/06/18 04:40 Laboratory Results - last 24 hr 02/06/18 02/07/18 02/07/18 20:55 06:52 09:53 CBC w Diff WBC RBC Hgb Hct MCV MCH MCHC RDW Plt Count MPV Neut % (Auto) Lymph % (Auto) [place] % (Auto) Eos % (Auto) Baso % (Auto) Neut # (Auto) Lymph # (Auto) [place] # (Auto) Eos # (Auto) Baso # (Auto) WBC Differential Differential Comment POC Glucose [address] C. diff Tox Epid 027 Negative C. difficile (PCR) Negative 02/07/18 02/07/18 02/07/18 10:00 11:47 16:50 CBC w Diff Auto diff final WBC 8.9 RBC 4.16 Hgb 11.9 Hct 34.8 L MCV 83.7 MCH 28.7 MCHC 34.3 RDW 13.3 Plt Count 375 MPV 8.4 Neut % (Auto) 65.9 Lymph % (Auto) 28.5 [place] % (Auto) 4.7 Eos % (Auto) 0.6 Baso % (Auto) 0.3 Neut # (Auto) 5.9 Lymph # (Auto) 2.5 [place] # (Auto) 0.4 Eos # (Auto) 0.1 Baso # (Auto) 0.0 WBC Differential . Differential Comment . POC Glucose [address] C. diff Tox Epid 027 C. difficile (PCR) Microbiology 02/06/18 20:55 Stool Enteric Pathogens (PCR) - Final Assessment and Plan - Attending Attestation colonoscopy done today due to IT issues procedure report did not cross over yet to [place] colitis left sided-most likely ischemic-biopsy diverticulosis Recommendations fu biopsy fu stool studies advance diet colon 3 month if dc fu gi
[2018-02-07] MEDS ORDERED: Insulin Detemir Inj 1,000 UNIT/10 ML Vial SQ SCH (21:00)
[2018-02-08] MEDS: Piperacil/Tazo 4.5 GM Premix 4.5 GM/100 ML BAG IV.SIG SCH (06:04)
[2018-02-08] MEDS: Insulin NovoLOG Aspart Correctional Sugar Inj SQ SCH (08:03)
[2018-02-08] MEDS: Lisinopril 20 MG Tablet PO SCH (08:05)
--- NOTE | 2018-02-08 14:43 | P.DS ---
Date of admission: 02/06/18 07:14 Primary care physician: Mark Anaya DO Brief History from admission: Ms. Zhou is a pleasant 62-year-old female with a history of diabetes mellitus, hypertension who was admitted to the hospital on 02/06/2018 due to abdominal pain, rectal bleed, nausea and vomiting. She has significant diarrhea as well which was bloody. Her symptoms started at night on 02/05/2018. She denies any fever but reports chills. She has never had a colonoscopy before. Upon arrival WBC 17.1K, hemoglobin 13.1, MCV 84.8, platelet 398K. Lactic acid 1.8. Thoracic aorta CT scan shows diffuse atherosclerotic disease. Also shows nonspecific colitis of the left-sided colon. 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 Cataract surgery. Family history significant for mother from Alzheimer's disease. Patient's father from brain aneurysm at young age. DS: Medications - Discharge Medications Prescriptions: aspirin [Aspirin Low Dose] 81 mg PO DAILY #90 tab pantoprazole [Protonix] 40 mg PO DAILY #90 tab DS: Summary Hospital Course: Ms. Zhou is a pleasant 62 year old female with a history of hypertension, diabetes mellitus who presented to the emergency department due to rectal bleed , abdominal pain, nausea and vomiting that started on 02/05/2018. [employer] evaluated patient. Colonoscopy showed diverticulosis, hemorrhoid and ischemic colitis. GI recommended outpatient follow-up. Patient' s leukocytosis improved from 17.1 --> 8.9. Patient has a history of peripheral vascular disease and she takes aspirin 325 as well as Plavix. I discussed with patient regarding aspirin and Plavix combination. I advised patient to take aspirin 81 mg along with Plavix. Moreover she should also be on a PPI. Patient verbalized understanding. Recommended patient to follow-up with her PCP and GI doctor. - Time Spent with Patient Total time spent providing and/or coordinating discharge services: Less than 30 minutes Exam Vital signs: Vital Signs 02/07/18 20:00 02/08/18 00:00 02/08/18 08:00 Temperature 98.2 F 98.3 F 97.9 F Pulse Rate 75 83 73 Respiratory Rate 16 16 20 Blood Pressure 118/56 L 110/59 L 147/65 H Pulse Oximetry 96 95 96 Intake & Output 02/07/18 02/08/18 02/08/18 18:59 06:59 18:59 Intake Total 940 / 940 680 / 680 Output Total 400 / 400 Balance 540 / 540 680 / 680 Weight 66.4 kg Intake: IV 100 / 100 200 / 200 Zosyn 4.5 GM Premix 4.5 gm In 100 / 100 200 / 200 100 ml @ 200 mls/hr IV.SIG Q8H ABRAN Rx#:[id number] Oral 240 / 240 480 / 480 Anesthesia Amount 600 / 600 Output: Urine 400 / 400 Other: # Voids 3 1 Date of Last Bowel Movement 02/07/18 02/07/18 # Bowel Movements 1 Narrative: GENERAL: Alert, oriented 3, NAD. SKIN: Warm and dry. HEAD: Normocephalic. EYES: No scleral icterus. No injection or drainage. NECK: Supple, trachea midline. No JVD or lymphadenopathy. CARDIOVASCULAR: Regular rate and rhythm without murmurs, gallops, or rubs. RESPIRATORY: Breath sounds equal bilaterally. No accessory muscle use. GASTROINTESTINAL: Abdomen soft, non-tender, nondistended. MUSCULOSKELETAL: No cyanosis, or edema. BACK: Nontender without obvious deformity. No CVA tenderness. Results Procedures completed during hospitalization: Colonoscopy: Due to technical problems, colonoscopy report is not available as of this discharge summary writing. Labs on day of discharge: Labs from last 24 hours 02/08/18 02/07/18 02/07/18 07:45 20:45 16:50 POC Glucose 147 H 126 H 141 H - Impressions ITS Impressions Chest X-Ray 02/06/18 04:36 CONCLUSION: No evidence of acute cardiopulmonary disease. Thoracic Aorta CT 02/06/18 04:37 CONCLUSION: 1. Diffuse atherosclerotic disease. No dissection or aneurysm of the aorta. 2. No acute occlusive disease demonstrated within the chest, abdomen or pelvis. There is partly seen evidence of high-grade stenosis/occlusion of the visualized right superficial femoral artery. 3. Nonspecific colitis of the left-sided colon. This is presumably infectious or inflammatory. No abscess, perforation or obstruction. Discharge Plan - Discharge Disposition Patient Disposition: 01 Discharge Home - Discharge Condition Condition: Good - Discharge Order Discharge Orders: Discharge Order (Routine); Ordered 02/08/18 Ordered By: Sara Garcia - Discharge Details Anticipated Discharge Date: 08/29/18 - Physicians Team Primary Care Provider: Mark Anaya Attending Provider: Sara Garcia Other Providers: Lashonda Hernandez MD ; [facility]
== END 2018-02-08 10:33 | disposition home or self-care (01) ==
LOC: PHED 04:16 → PHEDA 07:14 → PH3 08:25
PROVIDERS: ADMIT Hospitalist; ATTEND Hospitalist
PROC: COLONOS (2018-02-07 08:14)